=== PATIENT | male | born 1960 | race Two or more races ===

== ENCOUNTER → 2024-01-09 | Outpatient (CLI) | payer BC ==
--- NOTE | 2024-01-09 16:47 | XR ---
EXAMINATION TYPE: XR chest 2V DATE OF EXAM: 01/09/2024 1:51 PM CLINICAL INDICATION:Male, 63 years old with history of Z00.00 ADULT MEDICAL EXAM W/O ABNORMAL FINDING S; COMPARISON: None TECHNIQUE: XR chest 2V Frontal and lateral views of the chest. FINDINGS: Lungs/Pleura: There is no evidence of pleural effusion, focal consolidation, or pneumothorax. Pulmonary vascularity: Unremarkable. Heart/mediastinum: Cardiomediastinal silhouette is unremarkable. Musculoskeletal: No acute osseous pathology. IMPRESSION: No acute cardiopulmonary disease/process.
== END | disposition home or self-care (01) ==
LOC: RADXRMAIN 13:35
PROVIDERS: ATTEND Family Medicine
DX: Z00.00 Encounter for general adult medical examination without abnormal findings (principal); F17.210 Nicotine dependence, cigarettes, uncomplicated
CPT/HCPCS: 71046

== ENCOUNTER → 2024-02-05 | Outpatient (CLI) | payer BC ==
--- NOTE | 2024-02-05 11:58 | CA ---
Exercise Stress Test Report Name: Anish Burgess Exam Date: 02/05/2024 11:27 Exam Location: [place] Stress Ht (in): 71 Wt (lb): 200 BSA: 2.11 Ordering Phys: Bernardo Harrell DO Referring Phys: ED Technologist: ANNALEE LIRA Age: 63 Gender: M : 1960 Procedure CPT: Indications: J44.9 COPD, CP R07.9, R06.02 SOB ICD-10 Codes: Patient History: CP, MICHELLE, TOB, COPD Medications: NONE Meds past 24 hrs: Pretest Chest Pain: STRESS TEST Noel Protocol Exercise Duration (min:sec): 05:[address] Depressions (mm): Angina Score: Vera Score: Resting HR (bpm): 79 Peak HR (bpm): 138 Resting BP (mmHg): 110 / 89 Peak BP (mmHg): 138 / 90 MPHR: 157 Target HR: 133 % MPHR: 88 METS: 7.1 Total Dose: Peak Dose: Atropine: Double Product: 92527 BP Response: Stress Termination: Reached target heart rate Stress Symptoms: Dizziness (SUBSIDED ONCE SITTING) Stress Summary: ECG ANALYSIS Resting ECG: Stress ECG: CONCLUSIONS Average exercise tolerance Nondiagnostic stress testing due to baseline ST changes Dr. Wilfrid Ledezma MD (Electronically Signed) Final Date: 05 February 2024 11:57
--- NOTE | 2024-02-06 07:04 | CA ---
Transthoracic Echo Report Name: Anish Burgess Age: 63 Gender: M : 1960 Exam Date: 02/05/2024 11:35 Exam Location: [place] Echo Ht (in): 71 Wt (lb): 200 Ordering Physician: Bernardo Harrell DO Attending/Referring Phys: [employer] Recruiter Anita Jain RDCS Procedure CPT: Indications: J44.9 COPD, CP R07.9, R06.02 SOB Cardiac Hx: Technical Quality: Technically difficult study Contrast 1: Definity Total Dose (mL): 2 Contrast 2: Total Dose (mL): MEASUREMENTS (Male / Female) Normal Values 2D ECHO LV Diastolic Diameter PLAX 5.0 cm 4.2 - 5.9 / 3.9 - 5.3 cm LV Systolic Diameter PLAX 3.6 cm IVS Diastolic Thickness 1.1 cm 0.6 - 1.0 / 0.6 - 0.9 cm LVPW Diastolic Thickness 1.2 cm 0.6 - 1.0 / 0.6 - 0.9 cm LV Relative Wall Thickness 0.5 RV Internal Dim ED PLAX 3.3 cm LA Systolic Diameter LX 4.3 cm 3.0 - 4.0 / 2.7 - 3.8 cm LV Diastolic Volume MOD BP 61.2 cm??? 67 - 155 / 56 - 104 cm??? LV Systolic Volume MOD BP 27.2 cm??? 22 - 58 / 19 - 49 cm??? LV Ejection Fraction MOD BP 55.5 % >= 55 % LV Cardiac Index MOD BP 1454.1 cm???/min???m??? LV Diastolic Volume MOD 4C 55.7 cm??? LV Systolic Volume MOD 4C 32.7 cm??? LV Ejection Fraction MOD 4C 41.3 % LV Cardiac Index MOD 4C 984.8 cm???/min???m??? LV Diastolic Length 4C 6.5 cm LV Systolic Length 4C 5.8 cm LV Diastolic Volume MOD 2C 57.8 cm??? LV Systolic Volume MOD 2C 22.1 cm??? LV Ejection Fraction MOD 2C 61.8 % LV Cardiac Index MOD 2C 1531.2 cm???/min???m??? LV Diastolic Length 2C 5.5 cm LV Systolic Length 2C 6.2 cm LA Volume 71.7 cm??? 18 - 58 / 22 - 52 cm??? LA Volume Index 33.4 cm???/m??? 16 - 28 cm???/m??? M-MODE Aortic Root Diameter MM 4.1 cm AV Cusp Separation MM 2.3 cm DOPPLER AV Peak Velocity 99.1 cm/s AV Peak Gradient 3.9 mmHg MV Area PHT 3.5 cm??? MV Deceleration Time 209.0 ms TR Peak Velocity 200.9 cm/s TR Peak Gradient 16.2 mmHg Right Ventricular Systolic Press 21.2 mmHg FINDINGS Left Ventricle Left ventricular ejection fraction is estimated at 45-50 %. Left ventricular cavity size normal. Borderline left ventricular hypertrophy. Right Ventricle Mild right ventricular dilatation. Normal right ventricular size. Right Atrium Right atrium not well visualized. Left Atrium Mildly increased left atrial diameter. Mildly increased left atrial volume. Mildly increased left atrial area. Mitral Valve Structurally normal mitral valve. No mitral stenosis, regurgitation or prolapse. Aortic Valve Trileaflet aortic valve. No aortic valve stenosis or regurgitation. Tricuspid Valve Structurally normal tricuspid valve. Mild tricuspid regurgitation. Pulmonic Valve Structurally normal pulmonic valve. Trace pulmonic regurgitation. Pericardium No pericardial effusion. Aorta Mild aortic dilatation at the level of the sinuses of valsalva 41 mm CONCLUSIONS Technically difficult study for interpretation in spite of using Definity LV systolic function is 45-50% Overall poorly visualized intracardiac valves was no significant valvular abnormalities noted No pericardial effusion Mild aortic root enlargement at the level of the sinus of Valsalva at 4.1 cm Previewed by: Dr. Wilfrid Ledezma MD (Electronically Signed) Final Date: 06 Feb 2024 07:03
== END | disposition home or self-care (01) ==
LOC: RADNMMAIN 10:34
PROVIDERS: ATTEND Family Medicine
DX: J44.9 Chronic obstructive pulmonary disease, unspecified (principal); R07.9 Chest pain, unspecified; R06.02 Shortness of breath
CPT/HCPCS: 93017; 93306; Q9957

== ENCOUNTER → 2024-07-03 | Outpatient (CLI) | payer BC | END | disposition home or self-care (01) | LOC: RADECHMAIN 07:12 | PROVIDERS: ATTEND Family Medicine | DX: I25.10 Atherosclerotic heart disease of native coronary artery without angina pectoris (principal); I48.21 Permanent atrial fibrillation | CPT/HCPCS: 93270 ==

== ENCOUNTER 2024-09-24 08:42 | Day surgery (SDC) | payer BC ==
[~2024-09-24 08:42] MED LIST: LACTATED RINGERS 1,000 ML IV SCH
[2024-09-24] MEDS: SODIUM CHLORIDE 0.9% 500 ML 500 ML IV SCH (09:11)
[2024-09-24] MEDS: IV FLUID CONTINUATION 1,000 ML IV ONE (09:11)
[2024-09-24 09:12] VITALS: TEMP 97.5
[2024-09-24 09:37] LABS: African American GFR (CKD) >90 (>60 ml/min/1.73 sqM); Anion Gap 6 mmol/L; Blood Urea Nitrogen 25 mg/dL (9-20); Calcium 9.6 mg/dL (8.4-10.2); Carbon Dioxide 23 mmol/L (22-30); Chloride 108 mmol/L (98-107); Glucose 108 mg/dL (74-99); Non-African American GFR(CKD) 79 (>60 ml/min/1.73 sqM); Sodium 137 mmol/L (137-145)
[2024-09-24] MEDS ORDERED: LIDOCAINE 1% INJ 10MG/ML (20 ML MDV) ONE (09:55)
[2024-09-24] MEDS: BENZOCAINE SPRAY 1 EACH MM ONE (09:55)
[2024-09-24] MEDS ORDERED: PROPOFOL 10 MG/ML 20 ML VIAL IV ONE (09:55)
[2024-09-24 10:30] VITALS: RESP 16
[2024-09-24 11:19] VITALS: BP 115/81; PULSE 72
--- NOTE | 2024-09-25 09:10 | ECHOT ---
TRANSESOPHAGEAL ECHOCARDIOGRAM INDICATION: To rule out intracardiac thrombus in a patient with persistent atrial fibrillation. PROCEDURE NOTE: After obtaining informed consent, transesophageal echocardiogram was performed in left lateral position using an Omniplane probe. Local and IV sedation were obtained by the car ferry master. The patient tolerated the procedure well without any obvious immediate complications. FINDINGS: 1. There is no intracardiac thrombus within the left atrial appendage, left atrium, right atrium, right ventricle. 2. Left ventricle has normal size and systolic function. 3. Mitral valve shows mild mitral regurgitation. 4. Aortic valve is a 3-leaflet valve. There is no evidence of mitral stenosis or regurgitation. There is mild tricuspid regurgitation. Interatrial septum, there is no evidence of kisa-us-ohhbt shunt by color-flow Doppler or eyzdx-wy-mobo shunt by agitated saline contrast study. There is lipomatous hypertrophy noted. CONCLUSIONS: No intracardiac thrombus. PLAN: The patient will proceed with cardioversion. MMODL / IJN: [id number] /
--- NOTE | 2024-09-25 09:13 | PCN ---
PROCEDURE NOTE CARDIOVERSION NOTE: INDICATION: Persistent atrial fibrillation. PROCEDURE NOTE: After obtaining informed consent, the patient was electrically cardioverted with 150 joules of synchronized DC current. The patient was adequately anticoagulated and the thrombus was ruled out for TRUDI and the patient was sedated by the industrial maintenance electrician. He will continue the Toprol and the Eliquis that he is on. MMMELQUIADES / VERAN: [id number] /
== END 2024-09-24 11:48 | disposition home or self-care (01) ==
LOC: OR 08:42
PROVIDERS: ATTEND Internal Medicine Cardiovascular Disease
DX: I48.19 Other persistent atrial fibrillation (principal); I42.9 Cardiomyopathy, unspecified; F17.210 Nicotine dependence, cigarettes, uncomplicated; Z79.01 Long term (current) use of anticoagulants; Z79.899 Other long term (current) drug therapy
CPT/HCPCS: 93312; 93320; 93325; 92960; 80048; J2003; J2704

== ENCOUNTER 2024-10-30 08:56 | Day surgery (SDC) | payer BC ==
[~2024-10-30 08:56] MED LIST changes: -LACTATED RINGERS 1,000 ML IV SCH; +SODIUM CHLORIDE 0.9% 1,000 ML IV SCH
[2024-10-30] MEDS: IV FLUID CONTINUATION 1,000 ML IV ONE (09:30)
[2024-10-30] MEDS: LACTATED RINGERS 1,000 ML IV ONE (09:45)
[2024-10-30 09:57] LABS: African American GFR (CKD) 86 (>60 ml/min/1.73 sqM); Anion Gap 10 mmol/L; Blood Urea Nitrogen 21 mg/dL (9-20); Calcium 9.8 mg/dL (8.4-10.2); Carbon Dioxide 23 mmol/L (22-30); Chloride 107 mmol/L (98-107); Glucose 100 mg/dL (74-99); Non-African American GFR(CKD) 74 (>60 ml/min/1.73 sqM); Potassium 4.3 mmol/L (3.5-5.1); Sodium 140 mmol/L (137-145)
[2024-10-30 10:00] VITALS: TEMP 98
[2024-10-30] MEDS ORDERED: LIDOCAINE 1% INJ 10MG/ML (20 ML MDV) ONE (10:00)
[2024-10-30] MEDS ORDERED: PROPOFOL 10 MG/ML 20 ML VIAL IV ONE (10:00)
[2024-10-30 10:17] VITALS: RESP 16
[2024-10-30 11:00] VITALS: BP 106/76; PULSE 67
--- NOTE | 2024-10-30 14:05 | PCN ---
PROCEDURE NOTE CARDIOVERSION NOTE: INDICATION: Persistent atrial fibrillation. PROCEDURE NOTE: After obtaining informed consent, electrical cardioversion was performed with 150 joules of synchronized DC current. He converted to sinus rhythm following a single shock. He is on Eliquis for anticoagulation and had a TRUDI within the last several weeks. It did not reveal any thrombus. The patient will continue the amiodarone, Toprol, and Eliquis that he is on. He will be followed up in my office in a week's time. STEFAN / VERAN: [id number] /
== END 2024-10-30 11:25 | disposition home or self-care (01) ==
LOC: OR 08:56
PROVIDERS: ATTEND Internal Medicine Cardiovascular Disease
DX: I48.19 Other persistent atrial fibrillation (principal); F17.210 Nicotine dependence, cigarettes, uncomplicated; Z79.01 Long term (current) use of anticoagulants; Z79.899 Other long term (current) drug therapy; Z88.6 Allergy status to analgesic agent
CPT/HCPCS: 92960; 80048; J2003; J2704

== ENCOUNTER → 2025-02-16 | Outpatient (CLI) | payer OTHER ==
[2025-02-16 15:27] LABS: Blood Urea Nitrogen 19.2 mg/dL (9.0-27.0); Carbon Dioxide 21.9 mmol/L (21.6-31.8); Chloride 107 mmol/L (96-109); Potassium 4.7 mmol/L (3.5-5.5); Sodium 141 mmol/L (135-145)
[2025-02-16 15:35] LABS: HGB 16.3 g/dL (13.0-17.0); MCV 94.1 FL (80.0-97.0); NRBC Per 100 WBC 0 X 10*3/uL (0.00-0.01); Platelet Count 338 X 10*3/uL (140-440); RDW 12.1 % (11.5-14.5); WBC 8.04 X 10*3/uL (4.50-10.00)
== END | disposition home or self-care (01) ==
LOC: LABPAT 11:10
PROVIDERS: ATTEND Internal Medicine Clinical Cardiac Electrophysiology
DX: Z01.812 Encounter for preprocedural laboratory examination (principal); I48.91 Unspecified atrial fibrillation
CPT/HCPCS: 36415; 80051; 82565; 84520; 85027